=== PATIENT | female | born 1970 | race Caucasian/White ===

== ENCOUNTER 2017-10-29 10:16 | Emergency (ER) | payer BC, OTHER ==
[~2017-10-29] VITALS: Ht 157.5 cm; Wt 75.0 kg
[2017-10-29 10:31] VITALS: BP 131/84
== END 2017-10-29 17:45 | disposition left against medical advice (07) ==
LOC: ER 10:52
DX: R07.9 Chest pain, unspecified (principal); Z53.21 Procedure and treatment not carried out due to patient leaving prior to being seen by health care provider
CPT/HCPCS: 93005